=== PATIENT | female | born 1940 | race Caucasian/White ===

== ENCOUNTER 2025-05-11 13:57 | Emergency (ER) | payer OTHER ==
[~2025-05-11] VITALS: Ht 157.5 cm; Wt 56.7 kg
[2025-05-11 15:21] LABS: PLATELET COUNT (AUTO) 332 K/uL (150-450); RED BLOOD CELL COUNT(AUTO) 4.86 MIL/uL (4.0-5.2); RED CELL DISTRIBUTION WIDTH 13.7 % (11.5-15.0); WHITE BLOOD COUNT (AUTO) 11.0 K/uL (4.3-11.0)
[2025-05-11 15:29] LABS: CALCIUM, SERUM 9.3 mg/dL (8.5-10.1); CREATININE 0.8 mg/dL (0.6-1.3); SODIUM SERUM 138.0 mmol/L (136-145); UREA NITROGEN, BLOOD 18.0 mg/dL (7-18)
[2025-05-11] MEDS ORDERED: MORPHINE SULFATE INJ 2 MG/ML DISP.SYRIN ONE (15:38)
[2025-05-11] MEDS ORDERED: ONDANSETRON HCL/PF 4 MG/2 ML VIAL ONE (15:38)
[2025-05-11 15:39] LABS: INR 1.03 (0.91-1.10)
[2025-05-11] MEDS: ONDANSETRON HCL/PF - ER 4 MG/2 ML VIAL IV ONE (15:48)
[2025-05-11] MEDS: MORPHINE SULFATE INJ 2 MG/ML DISP.SYRIN IV ONE (15:49)
[2025-05-11 17:40] VITALS: BP 142/84; TEMP 97.9; O2SAT 97
== END 2025-05-11 18:09 | disposition short-term general hospital (02) ==
LOC: ER 14:08
DX: S32.312A Displaced avulsion fracture of left ilium, initial encounter for closed fracture (principal); S32.592A Other specified fracture of left pubis, initial encounter for closed fracture; I51.9 Heart disease, unspecified; E78.5 Hyperlipidemia, unspecified; N32.81 Overactive bladder; Z86.2 Personal history of diseases of the blood and blood-forming organs and certain disorders involving the immune mechanism; W01.0XXA Fall on same level from slipping, tripping and stumbling without subsequent striking against object, initial encounter; Y93.89 Activity, other specified; Y92.89 Other specified places as the place of occurrence of the external cause; Y99.8 Other external cause status
CPT/HCPCS: 99285; 72125; 96374; 96375; 73503; 70450; 72131; 72192; 85025; 80048; 36415; 85730; J2405; J2270; 73502